=== PATIENT | male | born 1935 | race Caucasian/White ===

== ENCOUNTER 2017-02-16 08:41 | Day surgery (SDC) | payer OTHER ==
[2017-02-16] MEDS ORDERED: fentaNYL 100 MCG/2 ML INJ IVP ONE (08:46)
[2017-02-16] MEDS ORDERED: MIDAZOLAM 2 MG/2 ML VIAL IVP ONE (08:46)
[2017-02-16] MEDS ORDERED: ATROPINE SULFATE 1 MG/10 ML SYR IVP ONE (08:46)
[2017-02-16] MEDS ORDERED: NS 500 ML IV ONE (08:46)
[2017-02-16] MEDS ORDERED: ATROPINE SULFATE 1 MG/10 ML SYR ONE (08:48)
--- NOTE | 2017-02-16 09:02 | CPEKG ---
Heart Rate: 81 RR Interval: 741 QRSD Interval: 88 QT Interval: 420 QTC Interval: 488 QRS [place]: 84 T Wave [place]: 43 EKG Severity - ABNORMAL ECG - EKG Impression: ATRIAL FLUTTER, A-RATE 272 EKG Impression: BORDERLINE RIGHT AXIS DEVIATION EKG Impression: BORDERLINE PROLONGED QT INTERVAL Electronically Signed By: Stu Lauren 16-Feb-2017 17:36:13
--- NOTE | 2017-02-16 09:02 | CPEKG ---
Heart Rate: 81 RR Interval: 741 QRSD Interval: 88 QT Interval: 420 QTC Interval: 488 QRS [place]: 84 T Wave [place]: 43 EKG Severity - ABNORMAL ECG - EKG Impression: ATRIAL FLUTTER, A-RATE 272 EKG Impression: BORDERLINE RIGHT AXIS DEVIATION EKG Impression: BORDERLINE PROLONGED QT INTERVAL Electronically Signed By: Stu Lauren 16-Feb-2017 17:36:13
[2017-02-16 09:23] LABS: INR 2.44 (0.83-1.16); PROTIME(PATIENT) 26.7 SEC (12.0-15.0)
--- NOTE | 2017-02-16 09:59 | PDHPUP ---
History & Physical Update H&P update statement: This history and physical update is based on an assessment of the patient which was completed after admission or registration (within 24 hours), but prior to the surgery/procedure. H&P update: H&P reviewed & patient examined, no change in patient's condition since H&P completed
[2017-02-16] MEDS ORDERED: PROPOFOL 200 MG/20 ML VIAL ONE (10:03)
--- NOTE | 2017-02-16 10:10 | PDANEPAE ---
ANE History of Present Illness CV flutter ANE Past Medical History - Cardiovascular History Hx Arrhythmias: Yes - Pulmonary History Hx Sleep Apnea: No ANE Review of Systems Review of Systems: - Exercise capacity METS (RN): 3 METS ANE Patient History - Allergies Allergies/Adverse Reactions: No Known Allergies Allergy (Unverified 02/16/17 08:46) - Home Medications Home Medications: Allopurinol 02/16/17 [Last Taken Unknown] Hydrochlorothiazide 02/16/17 [Last Taken Unknown] Lisinopril 02/16/17 [Last Taken Unknown] Lovastatin 02/16/17 [Last Taken Unknown] Warfarin Pharmacy To Dose 02/16/17 [Last Taken Unknown] - Anes Hx Anes Hx: no prior problems - Smoking Hx Smoking Status: Never smoked Marijuana use: No - Alcohol Use Alcohol Use: Occasionally ANE Labs/Vital Signs - Labs Result Diagrams: 02/16/17 09:06 - Vital Signs Height: 165.2 cm Weight: 70.2 kg ANE Physical Exam - Airway Neck exam: decreased ROM Mallampati Score: Class 2 Mouth exam: normal dental/mouth exam - Pulmonary Pulmonary: no respiratory distress - Cardiovascular Cardiovascular: irregularly irregular - ASA Status ASA Status: III ANE Anesthesia Plan Anesthesia Plan: GA with mask (Brief GA)
--- NOTE | 2017-02-16 10:19 | PDTEE1 ---
EDUARDO Cardioversion Procedure Procedure: electrical cardioversion Anticoagulation: warfarin Procedural Details: Pads were placed in anterior-posterior position. EDUARDO probe was advanced and standard images obtained. There is no evidence of left atrial or left atrial appendage thrombus. Synchronized cardioversion attempt #1: other (70 J) Results: normal sinus rhythm Conclusions: successful cardioversion Conclusion Comment: EDUARDO not performed.
--- NOTE | 2017-02-16 10:24 | CPEKG ---
Heart Rate: 78 RR Interval: 769 P-R Interval: 232 QRSD Interval: 86 QT Interval: 408 QTC Interval: 465 P [place]: 29 QRS [place]: 61 T Wave [place]: -1 EKG Severity - ABNORMAL ECG - EKG Impression: SINUS RHYTHM EKG Impression: FIRST DEGREE AV BLOCK EKG Impression: SINUS RHYTHM HAS REPLACED ATRIAL FLUTTER NOTED ON PRIOR ECG Electronically Signed By: Stu Lauren 16-Feb-2017 17:37:03
--- NOTE | 2017-02-16 10:24 | CPEKG ---
Heart Rate: 78 RR Interval: 769 P-R Interval: 232 QRSD Interval: 86 QT Interval: 408 QTC Interval: 465 P [place]: 29 QRS [place]: 61 T Wave [place]: -1 EKG Severity - ABNORMAL ECG - EKG Impression: SINUS RHYTHM EKG Impression: FIRST DEGREE AV BLOCK EKG Impression: SINUS RHYTHM HAS REPLACED ATRIAL FLUTTER NOTED ON PRIOR ECG Electronically Signed By: Stu Lauren 16-Feb-2017 17:37:03
== END 2017-02-16 11:26 | disposition home or self-care (01) ==
LOC: FCATH 08:41
PROVIDERS: ATTEND Internal Medicine Cardiovascular Disease
PROC: 5A2204Z Restoration of Cardiac Rhythm, Single (ICD-10-PCS; principal; 2017-02-16)
DX: I48.92 Unspecified atrial flutter (principal)
CPT/HCPCS: J0461; J2704